=== PATIENT | female | born 1990 | race African-American/Black ===

== ENCOUNTER 2021-06-10 09:34 | Outpatient (CLI) | payer BC, MEDICAID, SELFPAY ==
--- NOTE | ~2021-06-10 | XR_ITS ---
EXAMINATION: XR shoulder RT min 2V DATE: 06/10/2021 09:54 INDICATION: Right shoulder injury and pain. TECHNIQUE: 4 views of right shoulder were obtained. COMPARISON: None. FINDINGS: Bone alignment is normal. No fracture. Joint spaces are well maintained. IMPRESSION: 1. Normal right shoulder. Reviewed, dictated and finalized at location A. IMPRESSION: 1. Normal right shoulder.
== END 2021-06-10 09:35 | disposition home or self-care (01) ==
LOC: ANHIMG 09:43
PROVIDERS: PCP Emergency Medicine; Visit Provider Emergency Medicine
DX: S49.91XA Unspecified injury of right shoulder and upper arm, initial encounter (principal); X58.XXXA Exposure to other specified factors, initial encounter
CPT/HCPCS: 73030

== ENCOUNTER 2023-09-30 10:24 | Outpatient (CLI) | payer OTHER, SELFPAY ==
[2023-09-30 10:52] LABS: Basophils Percent Auto 0.4 % (0.2-1.2); Eosinophils Absolute Auto 0.1 K/mm3 (0-0.3); Eosinophils Percent Auto 1.4 % (0-4.4); Hematocrit 42.4 % (37.0-47.0); Hemoglobin 13.9 g/dL (12.0-15.0); Immature Granulocyte Absolute 0.01 K/mm3 (0.00-0.031); Immature Granulocyte Percent A 0.2 % (0-0.5); Lymphocytes Absolute Auto 1.53 K/mm3 (0.9-3.2); Lymphocytes Percent Auto 30.3 % (18.3-44.2); Mean Corpuscular HGB Conc 32.8 g/dl (32-36); Mean Corpuscular Hemoglobin 31.2 pg (26-34); Mean Corpuscular Volume 95.1 fl (80-100); Mean Platelet Volume 9.6 fl (7.4-10.4); Monocytes Absolute Auto 0.4 K/mm3 (0.1-0.6); Monocytes Percent Auto 8.5 % (2.6-8.5); Neutrophils Percent Auto 59.2 % (45.5-73.1); Platelet Count Result 238 k/mm3 (150-375); Red Blood Count 4.46 M/mm3 (4.2-5.4); Red Cell Distribution Width 11.8 % (11.5-14.5); White Blood Count 5.1 K/mm3 (4.5-10.0)
[2023-09-30 11:49] LABS: HIV 1/2 Ab P24 Ag Result Negative (Negative)
[2023-09-30 12:09] LABS: Hepatitis B Surface Antigen Negative (Negative); Rubella IgG Antibody 7.2 IU/ML
[2023-09-30 14:01] LABS: Rapid Plasma Reagin Non-Reactive (NonReactive)
[2023-10-03 13:51] LABS: CMV IgG Antibody <0.60 U/mL (<0.60)
== END 2023-09-30 10:25 | disposition home or self-care (01) ==
PROVIDERS: PCP Emergency Medicine; Visit Provider Student in an Organized Health Care Education/Training Program
DX: N94.89 Other specified conditions associated with female genital organs and menstrual cycle (principal)
CPT/HCPCS: 36415; 84702; 85025; 85660; 86592; 86644; 86703; 86747; 86762; 86787; 86900; 86901; 87086; 87340; G0432

== ENCOUNTER 2023-12-22 04:29 | Observation (INO) | payer OTHER, SELFPAY ==
[2023-12-22] VITALS (67 sets, daily range): BP systolic 102–162; BP diastolic 45–133; PULSE 94–230; RESP 16–20; TEMP 36.1–36.6; O2SAT 95–100; BMI 30.2
--- NOTE | ~2023-12-22 | US_ITS ---
EXAMINATION: US OB limited DATE: 12/22/2023 08:45 INDICATION: viability assessment during second trimester TECHNIQUE: Real-time ultrasound of the pelvis was performed. The interpreting radiologist was not pre sent for the study. COMPARISON: 12/14/2023 FINDINGS: There is a single living fetus in breech presentation. The placenta is anterior. card iac activity and movement are noted. heart rate is 163 beats per minute (bpm). The amniot ic fluid index is subjectively normal. The internal cervical os appears to be open and amniotic fluid enters the endocervical canal. IMPRESSION: 1. Single living fetus in breech presentation. 2. Apparent insufficiency of the internal cervical os with amniotic fluid in the endocervical canal. Reviewed, dictated and finalized at location L. OW FILLER IMPRESSION: 1. Single living fetus in breech presentation. 2. Apparent insufficiency of the internal cervical os with amniotic fluid in th e endocervical canal.
--- NOTE | 2023-12-22 04:37 | ED.PREGNANCY ---
HPI - General Chief complaint: Vaginal Bleeding Stated complaint: cramping and vag bleeding Time Seen by Provider: 12/22/23 04:33 Related Data Home Medications Medication Instructions Recorded Confirmed vits no.126-ferrous fum tablet PO 10/10/23 12/05/23 28 mg iron-folic acid 800 mcg tablet (Classic ) Allergies Allergy/AdvReac Type Severity Reaction Status Date / Time Sulfa (Sulfonamide Allergy Mild Hives Verified 12/05/23 08:52 Antibiotics) [facility] Past Medical History Medical History (Updated 12/22/23 @ 18:19 by Annie Mills MD) Suppression of menses Vaginal irritation Surgical History Surgical History H/O colonoscopy H/O LEEP H/O wisdom tooth extraction Family History Family History Mother Hypertension Father Hypertension Grandparent Cerebrovascular accident Social History Social History Smoking status: Never smoker Alcohol intake: never Substance use: never Lack of Transportation: No Lack of Food: Never True Current Housing: I Have Housing Concerned About Future Housing: No Difficulty Paying Gas/Electric Bills: No Difficulty Paying for Meds: No Currently Unemployed: YES Education: Bachelor's Degree Difficulty w/ Childcare or Family Care: No Living arrangements: with family Occupation/Education: occupation Gender identity (if verbalized by the patient): Female Sexual Orientation (if Verbalized by the Patient): Straight or Heterosexual Course Vital Signs Vital signs: Vital Signs Temperature 97.5 F L 12/22/23 04:46 Pulse Rate 110 H 12/22/23 04:46 Respiratory Rate 20 12/22/23 04:46 Blood Pressure 145/89 H 12/22/23 04:46 Pulse Oximetry 100 12/22/23 04:46 Oxygen Delivery Room Air 12/22/23 04:46 Temperature 97 F L 12/22/23 07:02 Pulse Rate 112 H 12/22/23 09:03 Respiratory Rate 20 12/22/23 07:02 Blood Pressure 115/58 L 12/22/23 09:03 Pulse Oximetry 98 12/22/23 09:59 Oxygen Delivery Room Air 12/22/23 04:46 MDM - OB/Uterine Contractions Lab Data 12/22/23 06:39 Discharge Plan Discharge Clinical Impression: Vaginal bleeding Patient Disposition: Other Condition: Stable Attestation Supervising Provider Attestation Patient initially presents to ED with report of cramping and vaginal bleeding. Initially placed orders for UA and test prior to seeing patient, while patient in triage. While reviewing patient's information in EMR/chart review, I do see that based on ROLANDO 05/02/24 per US (documented in ObGyn Dr Varghese's note 12/05/23), patient currently has a gestational age of 21w1d.? RN brings patient to ED room and tells me patient is 21 weeks and has been told she has a low sitting placenta. I did see patient as she was wheeled first to ED room and ABCs appear intact but did not personally assess her. Given patient >20 weeks gestational age, protocol determines patient should be at Labor & Delivery. apartment house manager contacts L&D and patient is transported to OB. I did not interact with or provide care for this patient.
[2023-12-22] MEDS: NIFEdipine 10 MG CAPSULE 20 MG PO ×2 (05:25→09:31)
[2023-12-22] MEDS: ACETAMINOPHEN 500 MG TABLET 1000 MG PO (05:58)
--- NOTE | 2023-12-22 06:35 | PC.NURSE ---
Dr. Loja notified of pt continuing to have pain. 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 Pt tearful and holding right lower quadrant. Order received for LR bolus, IV morphine, CBC and UA. MD will be in to evaluated.
[2023-12-22] MEDS: MORPHINE SULFATE (*CRX) 2 MG/ML INJ IV PUSH ×2 (06:55→09:00)
[2023-12-22] MEDS: LACTATED RINGERS 1,000 ML 999 ML IV CONT (06:57)
--- NOTE | 2023-12-22 07:10 | PC.NURSE ---
Dr. Loja called, stated he was running late but would be in shortly. Update given on pt's pain and contractions. verbalized understanding. No further orders given at this time.
[2023-12-22 07:13] LABS: Basophils Percent Auto 0.2 % (0.2-1.2); Eosinophils Absolute Auto 0.1 K/mm3 (0-0.3); Eosinophils Percent Auto 0.4 % (0-4.4); Hematocrit 37.3 % (37.0-47.0); Immature Granulocyte Absolute 0.08 K/mm3 (0.00-0.031); Immature Granulocyte Percent A 0.7 % (0-0.5); Lymphocytes Absolute Auto 1.33 K/mm3 (0.9-3.2); Lymphocytes Percent Auto 11.6 % (18.3-44.2); Mean Corpuscular HGB Conc 32.2 g/dl (32-36); Mean Corpuscular Volume 96.4 fl (80-100); Mean Platelet Volume 9.7 fl (7.4-10.4); Monocytes Absolute Auto 0.6 K/mm3 (0.1-0.6); Neutrophils Absolute Auto 9.4 K/mm3 (1.3-6.7); Neutrophils Percent Auto 82.1 % (45.5-73.1); Platelet Count Result 224 k/mm3 (150-375); Red Blood Count 3.87 M/mm3 (4.2-5.4); Red Cell Distribution Width 12.6 % (11.5-14.5); White Blood Count 11.5 K/mm3 (4.5-10.0)
[2023-12-22 07:28] LABS: Bacteria Urine Rare /hpf; Non Pathogenic Casts 0-2; RBC Urine >100 /hpf (0-2); Squamous Epithelial Cell Urine None seen /hpf (Few)
[2023-12-22 07:46] LABS: Appearance Urine Turbid (Clear); Bilirubin Urine Negative (Negative); Blood Urine 3+ (Negative); Color Urine Red (Yellow); Glucose Urine UA Negative (Negative); Ketones Urine Negative (Negative); Leukocyte Esterase Ur 1+ LEU/UL (Negative); Nitrate Urine Negative (Negative); Protein Urine 1+ mg/dL (Negative); Urobilinogen Urine 0.2 mg/dL (<2.0); pH Urine 8.5 (5.0-9.0)
[2023-12-22 07:48] LABS: Add Urine Microscopic? YES
[2023-12-22] MEDS: INDOMETHACIN 50 MG SUPP.RECT RECTAL (08:17)
--- NOTE | 2023-12-22 08:54 | PM.IMHP ---
H&P: HPI History of Present Illness Date/Time: 12/22/23 08:54 Chief Complaint: Previable labor Narrative: 33-year-old G1 at 21 weeks 1 day who presents with complaint of vaginal bleeding. Patient has a known low-lying placenta. Patient states she woke early this morning with cramping pain. Patient states she got up to use the restroom and noticed vaginal bleeding. Your patient was noted to be painfully contracted upon arrival to Labor and delivery. Patient's medical history is complicated by history of LEEP and vaginitis during . Patient reports movement. She denies any fever, chills, nausea. Review of Systems Review of Systems: All systems reviewed & are unremarkable except as noted in HPI and below Cardiovascular: Cardiovascular: Denies chest pain, Denies leg edema, Denies palpitations, Denies dyspnea and Denies dyspnea on exertion Respiratory: Respiratory: Denies cough, Denies dyspnea and Denies dyspnea on exertion Gastrointestinal: Gastrointestinal: Denies abdominal pain, Denies constipation, Denies diarrhea, Denies nausea and Denies vomiting Genitourinary: Genitourinary: Denies hematuria, Denies urinary frequency, Denies dysuria, Denies pelvic pain, Denies urinary incontinence and Denies vaginal discharge Neurologic: Reports system reviewed and no additional complaints, except as documented Psychiatric: Psychiatric: Reports no additional psychiatric complaints Endocrine: Endocrine: Denies palpitations PMFSH Past Medical History Medical History (Updated 12/22/23 @ 08:58 by Chon Loja MD) Suppression of menses Vaginal irritation Surgical History Surgical History H/O colonoscopy H/O LEEP H/O wisdom tooth extraction Family History Family History Mother Hypertension Father Hypertension Grandparent Cerebrovascular accident Social History Social History Smoking status: Never smoker Alcohol intake: never Substance use: never Lack of Transportation: No Lack of Food: Never True Current Housing: I Have Housing Concerned About Future Housing: No Difficulty Paying Gas/Electric Bills: No Difficulty Paying for Meds: No Currently Unemployed: YES Education: Bachelor's Degree Difficulty w/ Childcare or Family Care: No Living arrangements: with family Occupation/Education: occupation Gender identity (if verbalized by the patient): Female Sexual Orientation (if Verbalized by the Patient): Straight or Heterosexual Meds Home Medications and Allergies Home Medications Medication Instructions Recorded Confirmed Type ondansetron HCl 4 mg tablet 4 mg PO Q6H PRN nausea and 10/10/23 12/05/23 Rx vomiting #30 tabs vits no.126-ferrous fum tablet PO 10/10/23 12/05/23 History 28 mg iron-folic acid 800 mcg tablet (Classic ) fluconazole 150 mg tablet 150 mg PO DAILY #2 tabs 12/07/23 Rx Allergies Allergy/AdvReac Type Severity Reaction Status Date / Time Sulfa (Sulfonamide Allergy Mild Hives Verified 12/05/23 08:52 Antibiotics) Vital Signs Vital Signs - 24 hr 12/22/23 04:46 12/22/23 04:58 12/22/23 05:26 Temperature 97.5 F L Pulse Rate 110 H 97 Respiratory Rate 20 Blood Pressure 145/89 H 130/83 Pulse Oximetry 100 99 100 Oxygen Delivery Room Air 12/22/23 05:29 12/22/23 05:31 12/22/23 05:41 Temperature Pulse Rate Respiratory Rate Blood Pressure Pulse Oximetry 100 99 99 Oxygen Delivery 12/22/23 05:46 12/22/23 05:51 12/22/23 05:56 Temperature Pulse Rate Respiratory Rate Blood Pressure Pulse Oximetry 98 99 100 Oxygen Delivery 12/22/23 06:01 12/22/23 06:06 12/22/23 06:11 Temperature Pulse Rate Respiratory Rate Blood Pressure Pulse Oximetry 98 100 99 Oxygen Delivery
--- NOTE | 2023-12-22 09:23 | PC.NURSE ---
This RN called and spoke with Dr. Loja regarding pt's pain and continuous contractions. MD informed that pt vomitted immediately after procardia was given earlier this AM. MD ordered second dose of procardia 20mg PO to be given STAT. RN repeated orders back to confirm.
--- NOTE | 2023-12-23 08:20 | PM.OBTRLD ---
OB - Triage/Final Diagnosis Visit Information Date of evaluation: 12/22/23 Reason for evaluation: other ( labor) Comments/Additional reasons for admission: I have assessed the risk for this patient, Moon Hull, and determined that she would benefit from observation care. Evaluation Laboratory results: Laboratory Tests 12/22/23 06:39 WBC 11.5 H RBC 3.87 L Hgb 12.0 Hct 37.3 MCV 96.4 MCH 31.0 MCHC 32.2 RDW 12.6 Plt Count 224 MPV 9.7 Immature Gran % (Auto) 0.7 H Neut % (Auto) 82.1 H Lymph % (Auto) 11.6 L [place] % (Auto) 5.0 Eos % (Auto) 0.4 Baso % (Auto) 0.2 Lymph # (Auto) 1.33 [place] # (Auto) 0.6 Eos # (Auto) 0.1 Baso # (Auto) 0.0 Abs Immat Gran (auto) 0.08 H Absolute Neuts (auto) 9.4 H Absolute Nucleated RBC 0.0 Nucleated RBC % 0.0 Urine Color Red H Urine Appearance Turbid H Urine pH 8.5 Ur Specific [place] 1.010 Urine Protein 1+ H Urine Glucose (UA) Negative Urine Ketones Negative Ur Blood (Man) 3+ H Urine Nitrate Negative Urine Bilirubin Negative Urine Urobilinogen 0.2 Leukocyte Esterase Rfl 1+ H Urine RBC >100 H Urine WBC 11-20 H Ur Squamous Epith Cells None seen Urine Bacteria Rare Urine Casts 0-2 Vital signs: Vital Signs - 24 hr 12/22/23 08:25 12/22/23 08:30 12/22/23 08:35 Pulse Rate Blood Pressure Pulse Oximetry 99 99 98 12/22/23 08:40 12/22/23 08:45 12/22/23 08:50 Pulse Rate Blood Pressure Pulse Oximetry 96 96 98 12/22/23 08:55 12/22/23 09:00 12/22/23 09:02 Pulse Rate 230 H Blood Pressure 162/133 H Pulse Oximetry 95 98 12/22/23 09:03 12/22/23 09:05 12/22/23 09:10 Pulse Rate 112 H Blood Pressure 115/58 L Pulse Oximetry 97 97 12/22/23 09:12 12/22/23 09:16 12/22/23 09:18 Pulse Rate Blood Pressure Pulse Oximetry 98 97 96 12/22/23 09:20 12/22/23 09:25 12/22/23 09:30 Pulse Rate Blood Pressure Pulse Oximetry 99 96 96 12/22/23 09:31 12/22/23 09:36 12/22/23 09:41 Pulse Rate Blood Pressure Pulse Oximetry 97 100 100 12/22/23 09:46 12/22/23 09:51 12/22/23 09:56 Pulse Rate Blood Pressure Pulse Oximetry 98 98 100 12/22/23 09:59 Pulse Rate Blood Pressure Pulse Oximetry 98
== END 2023-12-22 10:14 | disposition short-term general hospital (02) ==
LOC: ANHED 04:52 → ANHOBPP 04:55
PROVIDERS: Admitting Provider Student in an Organized Health Care Education/Training Program; Emergency Provider Obstetrics & Gynecology; PCP Emergency Medicine; Visit Provider Student in an Organized Health Care Education/Training Program
DX: O60.02 Preterm labor without delivery, second trimester (principal); O44.42 Low lying placenta NOS or without hemorrhage, second trimester; Z3A.21 21 weeks gestation of pregnancy; Z79.899 Other long term (current) drug therapy
CPT/HCPCS: 36415; 76815; 81001; 85025; 87086; 96374; 96376; 99285; A9270; G0378; G0379; J2270; J7120